=== PATIENT | female | born 1970 | race Two or more races ===

== ENCOUNTER 2022-09-05 13:09 | Inpatient (IN) | payer MEDICAID ==
[~2022-09-05] VITALS: Ht 160 cm; Wt 74.0 kg
[2022-09-05] MEDS ORDERED: FAMOTIDINE (10MG/ML) 2ML VL IV ONE ×2 (14:15→15:00)
[2022-09-05] MEDS ORDERED: SODIUM CHLORIDE 0.9% 1,000 ML IV ONE ×2 (14:15→15:45)
[2022-09-05] MEDS ORDERED: METOCLOPRAMIDE HCL 5MG/ml INJ 2ml VIAL IV ONE (14:15)
[2022-09-05 15:06] LABS: Basophils # (auto) 0 10 ^3/uL (0-0.2); Eosinophils # (auto) 0 10 ^3/uL (0-0.8); Eosinophils % (auto) 0.1 % (0.0-7.0); Lymphocytes # (auto) 0.7 10 ^3/uL (0.4-5.4); Mean Corpuscular Hemoglobin 30.9 pg (28.0-32.0); Neutrophils # (auto) 8.5 10 ^3/uL (1.6-8.6); White Blood Cell 9.7 10^3/uL (4.4-10.8)
[2022-09-05 15:07] LABS: Basophils % (auto) 0.3 % (0.0-2.0); Hematocrit 55.1 % (36.0-46.0); Hemoglobin 18.8 g/dL (12.2-16.2); Lymphocytes % (auto) 6.8 % (10.0-50.0); Mean Corpuscular Hgb Conc. 34.1 g/dL (32.0-36.0); Mean Corpuscular Volume 90.7 fL (80.0-100.0); Monocytes # (auto) 0.6 10 ^3/uL (0-1.3); Monocytes % (auto) 5.7 % (0.0-12.0); Neutrophils % (auto) 87.1 % (37.0-80.0); Nucleated Red Blood Cells % 0.2 %; Red Blood Cells 6.07 10^6/uL (4.0-5.20)
[2022-09-05 15:23] LABS: Albumin 4.8 g/dL (3.4-5.0); Calcium 10.5 mg/dL (8.5-10.1); Potassium 3.8 mmol/L (3.5-5.1)
[2022-09-05 15:25] LABS: BUN/Creatinine Ratio 9.9
[2022-09-05 15:36] LABS: Bilirubin, Total 1.2 mg/dL (0.2-1.0); Total Protein 9.3 g/dL (6.4-8.2)
[2022-09-05] MEDS ORDERED: diphenhdrAMINE HCL 50 MG/1 ML VL IV ONE (15:45)
[2022-09-05] MEDS ORDERED: NITROGLYCERIN 0.4 MG SL TAB SL PRN (17:15)
[2022-09-05] MEDS ORDERED: MORPHINE SULFATE INJ 2 MG/ml SYRG IV PRN (17:15)
[2022-09-05] MEDS ORDERED: ONDANSETRON HCL 4 MG/2 ML VIAL IV PRN (17:15)
[2022-09-05] MEDS ORDERED: DEXTROSE (50%) 50ML SYRG IV PRN (17:30)
[2022-09-05] MEDS: SODIUM CHLORIDE 0.9% 1,000 ML IV SCH (18:05)
[2022-09-05 19:38] LABS: Urine Bacteria FEW /hpf (None Seen); Urine Blood 3+ /uL (Negative); Urine Hyaline Cast FEW /lpf (0 - 2); Urine Mucus FEW (None Seen); Urine Specific Gravity 1.019 (1.001-1.035); Urine WBC 4 /hpf (0 - 5)
[2022-09-05] MEDS: ACCU-CHEK COMFORT CURVE STRIP VI SCH (22:36)
[2022-09-05] MEDS: InsuLIN REG 1unit/0.01ml Soln (100units/ml) SC SCH (22:36)
[2022-09-05] MEDS: metroNIDAZOLE 500MG/100ML 100 ML IV SCH (22:51)
[2022-09-05] MEDS: HEPARIN SODIUM (PORCINE) 5000 UNITS/ML 1ML VIAL SC SCH (22:53)
[2022-09-05 23:43] VITALS: BP 124/74
[2022-09-05 23:48] VITALS: BP 124/74
[2022-09-06] MEDS: ONDANSETRON HCL 4 MG/2 ML VIAL IV PRN ×4 (02:12→21:43)
[2022-09-06] MEDS: SODIUM CHLORIDE 0.9% 1,000 ML IV SCH ×2 (02:13→09:39)
[2022-09-06] MEDS ORDERED: METF-370 PO (02:16)
[2022-09-06] MEDS ORDERED: LISI-716 PO (02:16)
[2022-09-06 05:00] VITALS: BP 107/69
[2022-09-06] MEDS: metroNIDAZOLE 500MG/100ML 100 ML IV SCH ×3 (05:41→21:42)
[2022-09-06 06:07] LABS: Basophils # (auto) 0 10 ^3/uL (0-0.2); Basophils % (auto) 0.2 % (0.0-2.0); Eosinophils # (auto) 0 10 ^3/uL (0-0.8); Eosinophils % (auto) 0.1 % (0.0-7.0); Hematocrit 45.1 % (36.0-46.0); Hemoglobin 15.8 g/dL (12.2-16.2); Lymphocytes # (auto) 0.5 10 ^3/uL (0.4-5.4); Lymphocytes % (auto) 9.6 % (10.0-50.0); Mean Corpuscular Hemoglobin 31.2 pg (28.0-32.0); Mean Corpuscular Hgb Conc. 34.9 g/dL (32.0-36.0); Mean Corpuscular Volume 89.2 fL (80.0-100.0); Monocytes # (auto) 0.4 10 ^3/uL (0-1.3); Neutrophils % (auto) 82.1 % (37.0-80.0); Nucleated Red Blood Cells % 0.5 %; Red Blood Cells 5.06 10^6/uL (4.0-5.20); White Blood Cell 4.9 10^3/uL (4.4-10.8)
[2022-09-06 06:24] LABS: Albumin 3.3 g/dL (3.4-5.0); Calcium 9.5 mg/dL (8.5-10.1); Potassium 3.1 mmol/L (3.5-5.1)
[2022-09-06 06:27] LABS: Bilirubin, Total 0.8 mg/dL (0.2-1.0); Total Protein 7.4 g/dL (6.4-8.2)
[2022-09-06] MEDS: ACCU-CHEK COMFORT CURVE STRIP VI SCH ×4 (06:50→22:05)
[2022-09-06] MEDS: InsuLIN REG 1unit/0.01ml Soln (100units/ml) SC SCH ×4 (06:51→22:00)
[2022-09-06 09:00] VITALS: BP 127/76
[2022-09-06] MEDS: HEPARIN SODIUM (PORCINE) 5000 UNITS/ML 1ML VIAL SC SCH ×2 (09:37→21:44)
[2022-09-06] MEDS ORDERED: ENOXAPARIN SOD 30 MG/0.3 ML SYRINGE SC SCH (10:00)
[2022-09-06] MEDS ORDERED: cefTRIAXone 1GM/50ML D5W 50 ML IV ONE (11:45)
[2022-09-06] MEDS: ACETAMINOPHEN 500 MG TAB PO PRN ×2 (11:49→21:05)
[2022-09-06] MEDS ORDERED: PANTOPRAZOLE 40 MG/10 ML VIAL INJ IV ONE (12:45)
[2022-09-06 13:00] VITALS: BP 124/78
[2022-09-06] MEDS ORDERED: LACTATED RINGER'S 1,000 ML IV SCH (14:30)
[2022-09-06 16:34] VITALS: BP 122/73
[2022-09-06] MEDS: LACTATED RINGER'S 1,000 ML IV SCH ×2 (16:41→21:40)
[2022-09-06 18:02] LABS: Cholesterol 172 mg/dL (< 200); HDL Cholesterol 85 mg/dL (40-59); LDL Cholesterol 58 mg/dL (< 100); Triglycerides 172 mg/dL (< 150)
[2022-09-06 22:00] VITALS: BP 118/72
[2022-09-07] MEDS: LACTATED RINGER'S 1,000 ML IV SCH (04:54)
[2022-09-07 05:00] VITALS: BP 122/75
[2022-09-07] MEDS: ACETAMINOPHEN 500 MG TAB PO PRN (05:07)
[2022-09-07] MEDS: metroNIDAZOLE 500MG/100ML 100 ML IV SCH (05:40)
[2022-09-07 05:41] LABS: Potassium 3.4 mmol/L (3.5-5.1)
[2022-09-07 05:45] LABS: BUN/Creatinine Ratio 18.6; Calcium 9.3 mg/dL (8.5-10.1)
[2022-09-07] MEDS: InsuLIN REG 1unit/0.01ml Soln (100units/ml) SC SCH ×2 (06:22→11:30)
[2022-09-07] MEDS: ACCU-CHEK COMFORT CURVE STRIP VI SCH ×2 (06:22→13:01)
[2022-09-07 09:00] VITALS: BP_SYST 117; BP_SYST 139; BP_DIAS 82; BP_DIAS 92
[2022-09-07] MEDS ORDERED: cefTRIAXone 1GM/50ML D5W 50 ML IV SCH (09:00)
[2022-09-07] MEDS ORDERED: METR500T PO (09:40)
[2022-09-07] MEDS ORDERED: LOP2C PO (09:40)
[2022-09-07] MEDS: HEPARIN SODIUM (PORCINE) 5000 UNITS/ML 1ML VIAL SC SCH (09:56)
[2022-09-07] MEDS ORDERED: PANTOPRAZOLE 40 MG/10 ML VIAL INJ IV SCH (10:00)
== END 2022-09-07 13:39 | disposition home or self-care (01) | DRG 249 ==
LOC: ER 13:09 → EDBD 13:09 → OVERFLOW 17:28 → CENTRAL 23:20
PROVIDERS: ADMIT Registered Nurse; ATTEND Family Medicine
DX: E86.0 Dehydration (principal); K52.9 Noninfective gastroenteritis and colitis, unspecified; N17.0 Acute kidney failure with tubular necrosis; E11.22 Type 2 diabetes mellitus with diabetic chronic kidney disease; E87.1 Hypo-osmolality and hyponatremia; K76.0 Fatty (change of) liver, not elsewhere classified; F41.9 Anxiety disorder, unspecified; Z20.822 Contact with and (suspected) exposure to COVID-19; E78.5 Hyperlipidemia, unspecified; E87.6 Hypokalemia; E87.8 Other disorders of electrolyte and fluid balance, not elsewhere classified; N39.0 Urinary tract infection, site not specified; I12.9 Hypertensive chronic kidney disease with stage 1 through stage 4 chronic kidney disease, or unspecified chronic kidney disease; N18.2 Chronic kidney disease, stage 2 (mild); Z82.49 Family history of ischemic heart disease and other diseases of the circulatory system; Z83.3 Family history of diabetes mellitus
CPT/HCPCS: 36415; 36600; 71045; 76705; 80048; 80053; 80061; 81001; 81025; 82805; 82962; 83036; 83690; 84443; 85025; 87045; 87077; 87086; 87186; 87426; 87427; 87493; 93005; 96361; 96374; 96375; C9113; G0378; J0696; J2405; J3490